=== PATIENT | female | born 1990 | race American Indian/Alaskan Native ===

== ENCOUNTER 2016-05-24 11:12 | Outpatient (CLI) | payer MEDICARE ==
[2016-05-24 11:24] LABS: Basophils % (Auto) 0.1 % (0.0-1.8); Eosinophils % (Auto) 4.1 % (0.0-4.3); Hematocrit 36.8 % (30.3-42.9); Hemoglobin 11.9 gm/dl (10.1-14.3); Mean Corpuscular HGB Conc 32 % (30-34); Mean Corpuscular Volume 72 fl (79-97); Platelet Count 226 K/mm3 (140-440); Red Blood Count 5.09 M/mm3 (3.65-5.03); Red Cell Distribution Width 14.5 % (13.2-15.2); White Blood Count 6.8 K/mm3 (4.5-11.0)
[2016-05-24 11:26] LABS: Mean Corpuscular Hemoglobin 23 pg (28-32)
[2016-05-24 11:48] LABS: Alanine Aminotransferase 7 units/L (7-56); Albumin 4.5 g/dL (3.9-5); Albumin/Globulin Ratio 1.7 %; Alkaline Phosphatase 67 units/L (35-129); Anion Gap 17 mmol/L; Bilirubin,Total 0.2 mg/dL (0.1-1.2); Blood Urea Nitrogen 11 mg/dL (7-17); Calcium 8.9 mg/dL (8.4-10.2); Carbon Dioxide 26 mmol/L (22-30); Chloride 101.4 mmol/L (98-107); Cholesterol 122 mg/dL (50-199); Glucose 83 mg/dL (65-100); HDL Cholesterol 52 mg/dL (40-59); LDL Cholesterol,Direct 59 mg/dL (50-130); Potassium 4.4 mmol/L (3.6-5.0); Sodium 140 mmol/L (137-145); Total Protein 7.2 g/dL (6.3-8.2); Triglycerides 56 mg/dL (2-149)
== END 2016-05-24 11:13 | disposition home or self-care (01) ==
LOC: LAB 11:12
PROVIDERS: ATTEND Nurse Practitioner Psychiatric/Mental Health
DX: F63.9 Impulse disorder, unspecified (principal)
CPT/HCPCS: 36415; 80053; 80061; 84443; 85025